=== PATIENT | male | born 1970 ===

== ENCOUNTER 2022-03-18 19:40 | Emergency (ER) | payer MEDICAID ==
[2022-03-18] MEDS ORDERED: Morphine 4 MG/ML Syringe IVPUSH ONE (20:01)
[2022-03-18] MEDS ORDERED: Ondansetron 4 MG/2 ML SDV IVPUSH ONE (20:02)
[2022-03-18 20:25] LABS: CARBON DIOXIDE,CO2 27.8 mmol/L (21.0-32.0); POTASSIUM,K 3.6 mmol/L (3.5-5.1)
== END 2022-03-18 21:04 | disposition home or self-care (01) ==
LOC: MW.ED 19:40
DX: M54.9 Dorsalgia, unspecified (principal); E78.00 Pure hypercholesterolemia, unspecified; I12.9 Hypertensive chronic kidney disease with stage 1 through stage 4 chronic kidney disease, or unspecified chronic kidney disease; E11.22 Type 2 diabetes mellitus with diabetic chronic kidney disease; N18.30 Chronic kidney disease, stage 3 unspecified; J45.909 Unspecified asthma, uncomplicated; Z72.0 Tobacco use; Z88.5 Allergy status to narcotic agent; Z79.84 Long term (current) use of oral hypoglycemic drugs; Z79.899 Other long term (current) drug therapy; Z20.822 Contact with and (suspected) exposure to COVID-19
CPT/HCPCS: 36415; 74176; 80053; 81003; 85025; 87635; 96374; 96375; 99284; J2270; J2405; U0002